=== PATIENT | female | born 1965 | race African-American/Black ===

== ENCOUNTER 2017-05-29 08:44 | Day surgery (SDC) | payer MEDICARE, OTHER, MEDICAID ==
[2017-05-29] MEDS ORDERED: Acetaminophen 500 MG TAB PO PRN (09:00)
[2017-05-29] MEDS ORDERED: diphenhydrAMINE 25 MG in Sodium Chloride 0.9% 50 ML IVPB SCH (09:00)
[2017-05-29] MEDS ORDERED: diphenhydrAMINE 50 MG/ML VIAL IVP PRN (09:00)
[2017-05-29] MEDS ORDERED: Acetaminophen 500 MG TAB PO SCH (09:00)
[2017-05-29] MEDS ORDERED: Sodium Chloride 0.9% 20 ML ONE (09:08)
[2017-05-29] MEDS ORDERED: SODIUM CHLORIDE 0.9% IVPB SCH (09:15)
[2017-05-29] MEDS ORDERED: INFLIXIMAB IVPB SCH (09:15)
[2017-05-29 16:19] VITALS: BP 122/70; TEMP 97.9
== END 2017-05-29 16:26 | disposition home or self-care (01) ==
LOC: ONC/OP 08:44
PROVIDERS: ATTEND Internal Medicine Rheumatology
DX: M05.89 Other rheumatoid arthritis with rheumatoid factor of multiple sites (principal); I10 Essential (primary) hypertension; E03.9 Hypothyroidism, unspecified; Z88.0 Allergy status to penicillin; Z90.710 Acquired absence of both cervix and uterus; Z98.890 Other specified postprocedural states
CPT/HCPCS: 96367; 96413; 96415; A4216; J1200; J1745; J7050

== ENCOUNTER 2018-05-09 01:26 | Emergency (ER) | payer OTHER, MEDICARE ==
[2018-05-09] MEDS ORDERED: Famotidine 20 MG TAB ONE (01:38)
[2018-05-09] MEDS ORDERED: predniSONE 20 MG TAB ONE (01:39)
== END 2018-05-09 01:44 | disposition home or self-care (01) ==
LOC: SCSER 01:26
DX: T78.40XA Allergy, unspecified, initial encounter (principal); I10 Essential (primary) hypertension; E03.9 Hypothyroidism, unspecified; K21.9 Gastro-esophageal reflux disease without esophagitis
CPT/HCPCS: 99283; J7506

== ENCOUNTER 2018-05-30 12:20 | Emergency (ER) | payer OTHER, MEDICARE ==
[2018-05-30] MEDS ORDERED: Clindamycin/D5W 900 mg/50 ml Premix Bag ONE (12:56)
[2018-05-30] MEDS ORDERED: Dexamethasone 10 MG/ML VIAL ONE (12:56)
[2018-05-30 13:08] LABS: #Basophils 0.1 thou/uL (0.0-0.2); #Lymphocytes 1.9 thou/uL (1.20-3.40); #Monocytes 0.6 thou/uL (0.11-0.59); #Neutrophils 3.9 thou/uL (1.40-6.50); %Basophils 1.3 % (0.0-1.0); %Eosinophils 0.1 % (0.0-10.0); %Lymphocytes 29.2 % (21.0-51.0); %Monocytes 9.3 % (0.0-10.0); %Neutrophils 60.2 % (42.0-75.0); Mean Corpuscular HGB CONC 32.4 g/dL (32.0-36.0); Mean Corpuscular Hemoglobin 28.8 pg (27.0-31.0); Mean Corpuscular Volume 88.9 fL (78.0-98.0); Mean Platelet Volume 6.4 fL (7.4-10.4); Platelet Count 217 thou/uL (130-400); RBC Distribution Width 13.8 % (11.5-14.5); Red Blood Cell (RBC) Count 4.17 mill/uL (4.20-5.40); White Blood Cell (WBC) Count 6.4 thou/uL (4.8-10.8)
[2018-05-30 13:20] LABS: Anion Gap 14 mmol/L (10-20); BUN (Urea Nitrogen) 15 mg/dL (9.8-20.1); Calc. Creatinine Clearance 0 mL/min (70-130); Calcium 9.8 mg/dL (7.8-10.44); Carbon Dioxide 29 mmol/L (22-29); Chloride 105 mmol/L (98-107); Estimated GFR-MDRD Greater than 90; Glucose 117 mg/dL (70-105); Potassium 3.6 mmol/L (3.5-5.1); Sodium 144 mmol/L (136-145)
[2018-05-30] MEDS ORDERED: Benzocaine 20% Spray 60 ML CAN ONE (13:54)
--- NOTE | 2018-05-30 18:40 | CON ---
DATE OF CONSULTATION: 05/30/2018 CHIEF COMPLAINT: I am seeing Ms. Owusu in consultation at the request of Dr. Leon Barajas for eval uation and treatment of possible peritonsillar abscess. HISTORY OF PRESENT ILLNESS: The patient is a 53-year-old woman who was in her usual state of good he alth until this morning about 10:00 a.m. when she started noticing some left-sided throat pain and a feeling of fullness, making it difficult for her to swallow. She denies any sore throat previously. She denies any difficulty with breathing at this time. She has not had any fever. Interestingly, s he had an episode of angioedema a week or two ago and has subsequently been taken off her TAMI inhibit or. She does have a history of reflux and takes a proton pump inhibitor as needed, but has not taken any recently. She denies other ear, nose, or throat complaints. PAST MEDICAL HISTORY: Significant for hypertension, rheumatoid arthritis. She denies diabetes. PAST SURGICAL HISTORY: No history of tonsillectomy. CURRENT MEDICATIONS: Reviewed on the nursing intake and no changes were noted. REVIEW OF SYSTEMS: Reviewed on the nursing intake and no changes were noted. PHYSICAL EXAMINATION: GENERAL: Ms. Owusu is in good spirits. Resting comfortably in the Emergency Department bed upright. HEENT: Head is normocephalic. The parotid and submandibular glands are smooth. There is normal fac ial tone. External ears and nose showed no scars, lesions, or masses. Ear canals are clear. Drums are within normal limits. Rhinoscopy reveals a midline septum. Mucosa is pink and moist. There is no pus or polyps. Oral cavity, lips, teeth, and gums are in good repair. Hard palate is normal. Mu cous membranes are pink and moist. She does have a slightly deviated uvula to the right and maybe a little erythema over the soft palate, but not bulging and not overly erythematous and there are certa inly no exudates. Tonsils are 1+. She does have some lateral gutter edema in the oropharynx on that left side. The airway is widely patent. I was unable to visualize the nasopharynx, hypopharynx, or larynx. NECK: There is no mass or thyromegaly. The trachea is midline. LYMPHATIC: No cervical lymphadenopathy. Voice quality is clear without any evidence of a hot potato voice. DATA: The patient had a CBC and was reportedly had a white count of 6. IMPRESSION: Oropharyngeal edema. This may be a very early peritonsillar cellulitis versus edema fro m may be a reflux attack with some choking episodes maybe at night. PLAN: The patient has, prior to my arrival, received 20 of Decadron as well as intravenous clindamyc in. I think it is very reasonable for her to be discharged home on oral antibiotic and a little Medr ol Dosepak with the instructions that she should follow up with my office next week if her symptoms d o not improve or certainly if they worsen. I have also encouraged her to take her reflux medication once or twice daily regularly for the next week or two.
== END 2018-05-30 14:26 | disposition home or self-care (01) ==
LOC: SCSER 12:20
DX: J39.2 Other diseases of pharynx (principal); I10 Essential (primary) hypertension; K21.9 Gastro-esophageal reflux disease without esophagitis; E03.9 Hypothyroidism, unspecified; M06.9 Rheumatoid arthritis, unspecified
CPT/HCPCS: 80048; 85025; 87081; 87430; 96365; 96375; J1100; J3490

== ENCOUNTER 2018-06-16 20:51 | Inpatient (IN) | payer OTHER, MEDICARE ==
[2018-06-16] MEDS ORDERED: diphenhydrAMINE 50 MG/ML VIAL ONE (21:03)
[2018-06-16] MEDS ORDERED: methylPREDNISolone Sod Succ/PF 125 MG/2 ML VIAL ONE (21:03)
[2018-06-16] MEDS ORDERED: Famotidine/PF 20 mg/2ml Vial ONE (21:03)
[2018-06-16] MEDS ORDERED: Ondansetron PF 4 MG/2 ML Vial ONE (21:11)
[2018-06-16 21:45] LABS: #Basophils 0.1 thou/uL (0.0-0.2); #Lymphocytes 3.2 thou/uL (1.20-3.40); #Monocytes 1.2 thou/uL (0.11-0.59); #Neutrophils 6.5 thou/uL (1.40-6.50); %Basophils 1.1 % (0.0-1.0); %Eosinophils 0.1 % (0.0-10.0); %Monocytes 10.6 % (0.0-10.0); %Neutrophils 59.3 % (42.0-75.0); Mean Corpuscular HGB CONC 33.3 g/dL (32.0-36.0); Mean Corpuscular Hemoglobin 29.3 pg (27.0-31.0); Mean Corpuscular Volume 87.8 fL (78.0-98.0); Mean Platelet Volume 6.5 fL (7.4-10.4); Platelet Count 234 thou/uL (130-400); RBC Distribution Width 13.6 % (11.5-14.5); White Blood Cell (WBC) Count 10.9 thou/uL (4.8-10.8)
[2018-06-16 21:56] LABS: ALT (SGPT) 32 U/L (8-55); AST (SGOT) 24 U/L (5-34); Albumin 4.1 g/dL (3.5-5.0); Alkaline Phosphatase 64 U/L (40-150); Anion Gap 15 mmol/L (10-20); BUN (Urea Nitrogen) 21 mg/dL (9.8-20.1); Bilirubin, Total 0.4 mg/dL (0.2-1.2); Calc. Creatinine Clearance 0 mL/min (70-130); Calcium 9.5 mg/dL (7.8-10.44); Carbon Dioxide 27 mmol/L (22-29); Chloride 104 mmol/L (98-107); Estimated GFR-MDRD Greater than 90; Glucose 90 mg/dL (70-105); Protein, Total 7.1 g/dL (6.0-8.3); Sodium 143 mmol/L (136-145)
[2018-06-16 22:02] LABS: Potassium 2.9 mmol/L (3.5-5.1)
[2018-06-16 22:55] VITALS: BMI 40.7
[2018-06-17] MEDS ORDERED: Acetaminophen 325 MG TAB PO PRN (00:32)
[2018-06-17] MEDS ORDERED: diphenhydrAMINE 50 MG/ML VIAL IVP PRN (00:35)
[2018-06-17] MEDS ORDERED: Potassium Chloride 20 MEQ TAB PO SCH (01:00)
--- NOTE | 2018-06-17 01:45 | HP ---
PRIMARY CARE PHYSICIAN: Dr. Mcbride. CHIEF COMPLAINT: Tongue swelling. HISTORY OF PRESENT ILLNESS: The patient is a very pleasant 53-year-old female with a past medical hi story of rheumatoid arthritis, hypertension, obesity, hypothyroidism, who presents to the hospital wi complaints of tingling to her tongue. The patient stated that she initially was on an TAMI inhibit or; however, on 05/08/2018, she started having swelling and tingling of her tongue and her mouth, so she went to the ER, she was taken off of the TAMI inhibitor. Patient on 05/10/2018 instead of the TAMI was put on an ARB and losartan. The patient states that she has been taking her losartan without an y issues. The patient stated that this morning she woke up, she took all her medications as prescrib ed. There was nothing new that she was recently prescribed. The patient stated that around 8:00 p.m . tonight, she started feeling a tingling sensation on her tongue and swelling of the left side of he r tongue. The patient at this time took Benadryl, called her who brought her into the ER. T he patient in the ER was given Pepcid, Benadryl, and was transferred here for overnight observation. The patient stated that initially she started also had some sensation to the back of her throat whic h currently is not present. She denies any shortness of breath. PAST MEDICAL HISTORY: She has a history of: 1. Hypertension. 2. Hypothyroidism. 3. Rheumatoid arthritis. 4. Obesity. PAST SURGICAL HISTORY: She has had several surgeries. 1. She has had breast reduction. 2. Hysterectomy. 3. She has had a cholecystectomy. 4. She has had a . ALLERGIES: She is allergic to AMOXICILLIN and PENICILLIN. She gets hives and she is now allergic to LISINOPRIL and LOSARTAN. MEDICATIONS: I do not have the list with me. I have asked the family to bring the medication list. SOCIAL HISTORY: She denies any alcohol use, drug use or smoking history. FAMILY HISTORY: No history of heart disease, cancer or autoimmune process. REVIEW OF SYSTEMS: All negative except for the ones mentioned above in the HPI. PHYSICAL EXAMINATION: VITAL SIGNS: As of the following, temperature 97.6, pulse 76, sats 79% on room air, blood pressure 1 44/92. GENERAL: She is awake, alert, oriented x3, does not appear in any distress. HEENT: The patient's tongue does not appear to be swollen at this point. Mucous membranes are intac t. No swelling of her lips are noted either. CARDIOVASCULAR: S1, S2 present. No murmurs, rubs or gallops. LUNGS: Clear to auscultation, rhonchi or wheezes noted. ABDOMEN: Soft, nontender. Bowel sounds are present x2. EXTREMITIES: No edema. Pedal pulses present x2. NEUROLOGICAL: Neurovascular caro, no focal deficits noted. LABORATORY RESULTS: As of the following, WBCs of 10.9, hemoglobin of 12.0, hematocrit of 36.0, plate lets of 234. Chemistry: Sodium of 143, potassium of 2.9, BUN of 21, creatinine of 0.74. LFTs were normal. ASSESSMENT AND PLAN: The patient is a very pleasant 53-year-old female who presents to the hospital with complaints of tingling to her tongue. 1. Angioedema. We will continue Pepcid twice a day. We will also put her on p.r.n. Benadryl. I do not think at this time, patient needs any steroids. We will continue to monitor. If she is feeling well, we will possibly discharge her in the morning. She not be able to take an TAMI or ARB. We will also need alternative medications for her hypertension. 2. Hypokalemia. This was replaced in the ER. We will check her BMP again. 3. Hypertension. The patient states that she does get lower extremity swelling, may try a beta bloc ker. 4. Rheumatoid arthritis. The patient is on Remicade. She takes it every 6 weeks and she is also on sulfasalazine. 5. Obesity. The patient is on obesity medication of phentermine, which she has been on it for the p ast six months. 6. Deep venous thrombosis prophylaxis. We will put the patient on sequential compression devices. Of note, in the ED, she did get Pepcid. She got Solu-Medrol. She got Benadryl and some Zofran. She did not get any potassium, so will replace the potassium here.
[2018-06-17 04:25] LABS: Anion Gap 13 mmol/L (10-20); BUN (Urea Nitrogen) 18 mg/dL (9.8-20.1); Calc. Creatinine Clearance 162 mL/min (70-130); Calcium 9.6 mg/dL (7.8-10.44); Carbon Dioxide 25 mmol/L (22-29); Chloride 107 mmol/L (98-107); Estimated GFR-MDRD Greater than 90; Glucose 143 mg/dL (70-105); Potassium 3.6 mmol/L (3.5-5.1); Sodium 141 mmol/L (136-145)
[2018-06-17 05:00] LABS: #Lymphocytes 0.9 thou/uL (1.20-3.40); #Monocytes 0.1 thou/uL (0.11-0.59); #Neutrophils 6.3 thou/uL (1.40-6.50); %Basophils 0.4 % (0.0-1.0); %Eosinophils 0.1 % (0.0-10.0); %Lymphocytes 12.7 % (21.0-51.0); %Neutrophils 85.7 % (42.0-75.0); Hemoglobin 12.3 g/dL (12.0-16.0); Mean Corpuscular HGB CONC 32.6 g/dL (32.0-36.0); Mean Corpuscular Hemoglobin 30.2 pg (27.0-31.0); Mean Corpuscular Volume 92.7 fL (78.0-98.0); Mean Platelet Volume 6.7 fL (7.4-10.4); Platelet Count 293 thou/uL (130-400); Red Blood Cell (RBC) Count 4.09 mill/uL (4.20-5.40); White Blood Cell (WBC) Count 7.4 thou/uL (4.8-10.8)
[2018-06-17] MEDS ORDERED: Famotidine 20 MG TAB PO SCH (09:00)
[2018-06-17] MEDS ORDERED: Cyclobenzaprine 10 MG TAB PO PRN (09:26)
[2018-06-17] MEDS ORDERED: Calcium Carbonate 500 MG ChewTAB PO PRN (09:26)
[2018-06-17] MEDS ORDERED: INFLIXIMAB IVPB SCH (09:30)
[2018-06-17] MEDS ORDERED: Hydrochlorothiazide 25 MG TAB PO SCH (09:45)
[2018-06-17] MEDS ORDERED: Amlodipine 5 MG TAB PO SCH (10:00)
[2018-06-17] MEDS ORDERED: diphenhydrAMINE 25 MG CAP PO PRN (14:40)
[2018-06-17 14:42] VITALS: BP 126/80; TEMP 97.9
[2018-06-17] MEDS ORDERED: Gabapentin 300 MG CAP PO SCH (15:00)
--- NOTE | 2018-06-17 15:02 | DIS ---
DATE OF ADMISSION: 06/17/2018 DATE OF DISCHARGE: 06/17/2018 PRIMARY CARE PROVIDER: Gume Mcbride M.D. DISCHARGE DIAGNOSES: 1. Angioedema. 2. Hypertension. 3. Hypokalemia. CONDITION OF PATIENT ON THE DAY OF DISCHARGE: Stable. I assessed Ms. Owusu on the day of discharge. She denies any complaints. PHYSICAL EXAMINATION: VITAL SIGNS: Stable. HEART: S1 and S2 are heard, regular. LUNGS: Clear to auscultation. HEENT: There is no tongue swelling. Throat appears normal. DISCHARGE MEDICATIONS: Amitriptyline 10 mg at bedtime, vitamin D3 5000 units daily, gabapentin 300 m g 3 times a day, infliximab as directed, leflunomide 20 mg daily, levothyroxine 125 mcg daily, lorata dine/pseudoephedrine allergy relief 1 tablet daily, naproxen 500 mg 2 times a day, phentermine 37.5 m g daily, sulfasalazine 500 mg 2 times a day, tizanidine 4 mg daily, triamcinolone 15 gram tube topica lly 2 times a day, amlodipine 2.5 mg daily, Pepcid 20 mg 2 times a day, hydrochlorothiazide 25 mg mao ly, Losartan has been discontinued, Medrol Dosepak, ibuprofen 200 mg every 6 hours as needed, Tums 50 0 mg 4 times a day as needed, Flexeril 10 mg at bedtime as needed, Meloxicam 15 mg daily as needed an d Benadryl 25 mg every 8 hours as needed. The patient has been advised not to drive or use heavy mac hinery when using Benadryl. HOSPITAL COURSE: Ms. Preston is a pleasant 53-year-old lady who was admitted to [facility] on 06/17/2018 for angioedema. She presented with tongue swelling. She was on losartan. Losartan has been discontinued. She has been started on amlodipine and hydrochlorothiazide, which w as already taking and was continued. She has been advised to take her blood pressure and heart rate 3 times a day and show that numbers to her primary care provider so that her blood pressure medicatio ns can be titrated. She has also been advised to take Pepcid 20 mg 2 times a day for 5 days, Benadryl p.r.n., and Medrol Dosepak. She has been advised to return to emergency room for new or worsening symptoms. She has been advised not to take TAMI inhibitors are ARB in the future. Many thanks for allowing me to participate in your patient's care. Please feel free to contact me wi th any questions or concerns. DISCHARGE DESTINATION: Home.
[2018-06-17] MEDS ORDERED: Amitriptyline HCl 10 MG TAB PO SCH (21:00)
[2018-06-17] MEDS ORDERED: Betamethasone 0.1% Cream 15 GM TUBE TOP SCH (21:00)
[2018-06-17] MEDS ORDERED: sulfaSALAzine 500 MG TAB PO SCH (21:00)
[2018-06-18] MEDS ORDERED: Levothyroxine Sodium 125 MCG TAB PO SCH (06:00)
[2018-06-18] MEDS ORDERED: Amlodipine 5 MG TAB PO SCH (09:00)
[2018-06-18] MEDS ORDERED: Loratadine/Pseudoephedrine 10/240 mg Tablet PO SCH (09:00)
[2018-06-18] MEDS ORDERED: Leflunomide 10 mg Tablet PO SCH (09:00)
[2018-06-18] MEDS ORDERED: Hydrochlorothiazide 25 MG TAB PO SCH (09:00)
[2018-06-18] MEDS ORDERED: PHENTERMINE HCL 37.5 MG PO SCH (09:00)
== END 2018-06-17 15:33 | disposition home or self-care (01) | DRG 916 ==
LOC: SCSER 20:51 → IMCU/EMU 21:50
PROVIDERS: ADMIT Internal Medicine; ATTEND Internal Medicine
DX: T78.3XXA Angioneurotic edema, initial encounter (principal); Z68.41 Body mass index [BMI] 40.0-44.9, adult; I10 Essential (primary) hypertension; E03.9 Hypothyroidism, unspecified; M06.9 Rheumatoid arthritis, unspecified; E66.9 Obesity, unspecified; E87.6 Hypokalemia; T46.5X5A Adverse effect of other antihypertensive drugs, initial encounter; Z88.0 Allergy status to penicillin; Z88.8 Allergy status to other drugs, medicaments and biological substances; Z79.899 Other long term (current) drug therapy
CPT/HCPCS: 36415; 80048; 80053; 85025; 86850; 86900; 86901; 96374; 96375; J1200; J2405; J2930; S0028

== ENCOUNTER 2018-07-20 04:03 | Inpatient (IN) | payer OTHER, MEDICARE ==
[2018-07-20] MEDS ORDERED: methylPREDNISolone Sod Succ/PF 125 MG/2 ML VIAL ONE (04:27)
[2018-07-20] MEDS ORDERED: Famotidine/PF 20 mg/2ml Vial ONE (04:27)
[2018-07-20] MEDS ORDERED: diphenhydrAMINE 50 MG/ML VIAL ONE (04:27)
[2018-07-20] MEDS ORDERED: Ondansetron PF 4 MG/2 ML Vial ONE (04:34)
[2018-07-20 04:41] LABS: #Basophils 0.2 thou/uL (0.0-0.2); #Lymphocytes 3.1 thou/uL (1.20-3.40); #Monocytes 1.2 thou/uL (0.11-0.59); #Neutrophils 8.3 thou/uL (1.40-6.50); %Basophils 1.3 % (0.0-1.0); %Lymphocytes 24.3 % (21.0-51.0); %Monocytes 9.2 % (0.0-10.0); %Neutrophils 65.2 % (42.0-75.0); Mean Corpuscular HGB CONC 31.4 g/dL (32.0-36.0); Mean Corpuscular Volume 92.2 fL (78.0-98.0); Mean Platelet Volume 6.7 fL (7.4-10.4); Platelet Count 294 thou/uL (130-400); RBC Distribution Width 14.2 % (11.5-14.5); Red Blood Cell (RBC) Count 4.12 mill/uL (4.20-5.40); White Blood Cell (WBC) Count 12.7 thou/uL (4.8-10.8)
[2018-07-20] MEDS ORDERED: EPINEPHrine 1 MG/ML AMP ONE (04:44)
[2018-07-20 04:49] LABS: Anion Gap 15 mmol/L (10-20); BUN (Urea Nitrogen) 29 mg/dL (9.8-20.1); Calc. Creatinine Clearance 0 mL/min (70-130); Calcium 9.5 mg/dL (7.8-10.44); Carbon Dioxide 26 mmol/L (22-29); Chloride 104 mmol/L (98-107); Estimated GFR-MDRD Greater than 90; Glucose 110 mg/dL (70-105); Potassium 3.3 mmol/L (3.5-5.1); Sodium 142 mmol/L (136-145)
[2018-07-20 05:59] VITALS: BMI 42.0
[2018-07-20] MEDS ORDERED: cloNIDine 0.1 MG TAB PO PRN (07:11)
[2018-07-20] MEDS ORDERED: Benzonatate 100 MG CAP PO PRN (07:11)
[2018-07-20] MEDS ORDERED: Nitroglycerin 0.4 MG TAB (25 Tab Bottle) SL PRN (07:11)
[2018-07-20] MEDS ORDERED: hydrALAZINE 20 MG/ML VIAL SLOW IVP PRN (07:11)
[2018-07-20] MEDS ORDERED: diphenhydrAMINE 25 MG CAP PO PRN (07:11)
[2018-07-20] MEDS ORDERED: Acetaminophen 325 MG TAB PO PRN (07:11)
[2018-07-20] MEDS ORDERED: Senokot S 8.6-50 MG TAB PO PRN (07:11)
[2018-07-20] MEDS ORDERED: Bisacodyl 5 MG TAB PO PRN (07:11)
[2018-07-20] MEDS ORDERED: Calcium Carbonate 500 MG ChewTAB PO PRN (07:11)
[2018-07-20] MEDS ORDERED: Ondansetron PF 4 MG/2 ML Vial IVP PRN ×2 (07:11)
[2018-07-20] MEDS ORDERED: diphenhydrAMINE 50 MG/ML VIAL IVP SCH (07:15)
[2018-07-20] MEDS ORDERED: Potassium Chloride 40 MEQ in Premix Bag 1 BAG IVPB SCH (08:00)
[2018-07-20] MEDS ORDERED: Enoxaparin Sodium 40 MG/0.4 ML SYRINGE SC SCH (09:00)
[2018-07-20] MEDS ORDERED: Famotidine/PF 20 mg/2ml Vial SLOW IVP SCH (09:00)
[2018-07-20] MEDS: diphenhydrAMINE 50 MG/ML VIAL IVP SCH ×2 (12:59→13:17)
--- NOTE | 2018-07-20 13:18 | HP ---
PRIMARY CARE PHYSICIAN: . CHIEF COMPLAINT: Scratchy throat. HISTORY OF PRESENT ILLNESS: Ms. Owusu is a 53-year-old female with a past medical history of rheumatoid arthritis, on immunosuppressants as well as history of hypertension, hypothyroidism, and TAMI inhibitor induced angioedema last month: Who presented to the emergency room with above-mentioned complaint. History is mainly obtained by the patient herself, and electronic medical records have been reviewed. She was last admitted to our facility on 06/17/2018 with tongue swelling and was diagnosed with angioedema due to TAMI inhibitor or ARB. She was told to stop that and she has not been back on it at all. She presented to the ER yesterday when she felt that the left side of her throat was scratchy and felt that her left tonsil is swollen. The patient very specifically declines any shortness of breath, wheezing, tongue swelling, or throat swelling. Nevertheless, the Emergency Room diagnosed her as having angioedema and ordered FFP and she was admitted to IMCU. By the time I am examining the patient, she has no symptoms suggestive of angioedema or even an allergic reaction. The patient vehemently declines using any TAMI inhibitors or ARB use. She is not having any fever, chills, shortness of breath, wheezing, or cough at this time. She is being admitted to the hospital with a presumptive diagnosis of angioedema as per the emergency room physician and for observation as per my diagnosis of possible viral pharyngitis. Unfortunately, she has already been started on fresh frozen plasma prior to me seeing her as ordered by ER physician. PAST MEDICAL HISTORY: 1. Hypertension. 2. Rheumatoid arthritis. 3. Hypothyroidism. 4. Obesity. PAST SURGICAL HISTORY: 1. Breast reduction. 2. Hysterectomy. 3. Cholecystectomy. 4. . ALLERGIES: AMOXICILLIN, PENICILLIN, LISINOPRIL, AND LOSARTAN. MEDICATION: List not updated as yet. She does take Imuran and Remicade as per the last admission as well as levothyroxine. SOCIAL HISTORY: No history of drug, tobacco, or alcohol abuse. FAMILY HISTORY: No significant family history of heart disease, cancer, or autoimmune process. REVIEW OF SYSTEMS: A 12-point review of systems is negative except for those mentioned in the history and physical. LABORATORY DATA: Her CBC shows WBCs at 12.7 without any left shift. Serum chemistry showed potassium of 3.3 and TSH of 0.0028. Complement C4 level was sent and is normal at 32. PHYSICAL EXAMINATION: VITAL SIGNS: Most recent vital signs; temperature 97.5, respirations 18, saturating 97% on room air, blood pressure 129/83, heart rate 87. GENERAL: No acute distress. Awake, alert, and oriented x3. She is somewhat somnolent from receiving multiple doses of IV Benadryl. Otherwise, easily woken up. HEENT: There is some erythema to the left tonsillar foci without any exudate or abscesses on the tonsil. There is absolutely no swelling in the posterior pharynx, tongue, roof of the mouth. Head is normocephalic, atraumatic. Mucous membranes are moist and pink. Pupils are equal, reactive to light and accommodation. NECK: Supple without any lymphadenopathy, JVD, or bruit. No stridor is heard. CHEST: Clear to auscultation without any wheezing, rales, or rhonchi. CARDIAC: Rate and rhythm are regular without any murmurs, rubs, or gallops. ABDOMEN: Soft, nontender, nondistended. Positive bowel sounds. EXTREMITIES: Free of any cyanosis, clubbing, or edema. NEUROLOGICAL: Nonfocal. SKIN: Free of any rashes or bruises. Feels warm and dry to touch. IMPRESSION AND PLAN: 1. Rule out angioedema. As per my history taking and my physical examination, I do not believe that this is angioedema. Also, there is no need for fresh frozen plasma as the complement C4 levels are normal. Her last episode was due to TAMI inhibitors or ARBs, which she has not been taking again. I do not think that she has C1 esterase inhibitor deficiency with normal complement C4 levels. However, she will finish the steroid, Benadryl, and Pepcid in the hospital, and most likely, we will try to discharge her home later today if she remains hemodynamically stable. There is absolutely no need for her to stay in the critical care unit and she will be moved to medical bed. She is currently hemodynamically stable, and there is no evidence of any respiratory distress. Comorbidities; resume home medications once confirmed. 2. , iatrogenic. Once her home dosage is confirmed, we will reduce the dose of the levothyroxine as her TSH is negligible. 3. History of hypertension. Restart home medications once confirmed. 4. Deep venous thrombosis and gastrointestinal prophylaxis. DISPOSITION: Ms. Owusu is being admitted to rule out angioedema. Estimated length of stay at this time is less than 2 midnights. Further management will depend upon her clinical course. Job ID: [id number]
[2018-07-20] MEDS ORDERED: Potassium Chloride 20 MEQ TAB PO SCH (15:15)
[2018-07-20 17:29] VITALS: BP 155/74; TEMP 97.9
--- NOTE | 2018-07-21 12:59 | DIS ---
DATE OF ADMISSION: 07/20/2018 DATE OF DISCHARGE: 07/20/2018 DISCHARGE DISPOSITION: Home. DISCHARGE DIAGNOSES: 1. Sore throat, rule out angioedema. 2. Hypertension. 3. Rheumatoid arthritis. 4. Hypothyroidism. 5. for 5 more days and Benadryl p.r.n. DISCHARGE SUMMARY: Ms. Owusu was admitted earlier today to rule out angioedema when developed some scratchy throat. She was recently admitted to our facility last month with angioedema and got worried when she had some throat itchiness and tonsil was swollen. She was admitted with presumptive diagnosis of angioedema. Please see admission H and P for further details. HOSPITAL COURSE: The patient had absolutely no symptoms of angioedema while in the hospital. She was not in any allergic reaction either. She was briefly treated with IV steroids and when it became apparent that she was discharged. Once again, please check H and P for further details. She will follow up with primary care physician in 1 to 2 days or return to the ER if her symptoms reoccur including throat or tongue swelling, wheezing, stridor, dizziness, lightheadedness, or rash. Job ID: [id number]
== END 2018-07-20 17:25 | disposition home or self-care (01) | DRG 153 ==
LOC: SCSER 04:03 → INTOOBSV 05:06 → CCU 05:06 → T4-A 09:34 → OBSVTOIN 17:24
PROVIDERS: ADMIT Internal Medicine; ATTEND Internal Medicine
PROC: 30233K1 Transfusion of Nonautologous Frozen Plasma into Peripheral Vein, Percutaneous Approach (ICD-10-PCS; principal; 2018-07-20)
DX: J02.9 Acute pharyngitis, unspecified (principal); Z68.41 Body mass index [BMI] 40.0-44.9, adult; T78.3XXA Angioneurotic edema, initial encounter; M06.9 Rheumatoid arthritis, unspecified; I10 Essential (primary) hypertension; E03.9 Hypothyroidism, unspecified; E66.9 Obesity, unspecified
CPT/HCPCS: 36415; 36430; 80048; 84443; 85025; 86160; 86850; 86900; 86901; 96372; 96374; 96375; J0171; J1200; J1650; J2405; J2920; J2930; J3480; P9059; S0028

== ENCOUNTER 2018-08-06 10:15 | Emergency (ER) | payer OTHER, MEDICARE ==
[2018-08-06] MEDS ORDERED: methylPREDNISolone Sod Succ/PF 125 MG/2 ML VIAL ONE (11:01)
[2018-08-06] MEDS ORDERED: diphenhydrAMINE 50 MG/ML VIAL ONE (11:01)
[2018-08-06] MEDS ORDERED: Ondansetron PF 4 MG/2 ML Vial ONE (11:06)
== END 2018-08-06 13:17 | disposition home or self-care (01) ==
LOC: SCSER 10:15
DX: T78.3XXA Angioneurotic edema, initial encounter (principal); E03.9 Hypothyroidism, unspecified; M06.9 Rheumatoid arthritis, unspecified; K21.9 Gastro-esophageal reflux disease without esophagitis; Z79.899 Other long term (current) drug therapy
CPT/HCPCS: 96374; 96375; J1200; J2405; J2930

== ENCOUNTER 2018-08-24 14:42 | Emergency (ER) | payer OTHER, MEDICARE ==
[2018-08-24] MEDS ORDERED: Famotidine/PF 20 mg/2ml Vial ONE (15:19)
[2018-08-24] MEDS ORDERED: diphenhydrAMINE 50 MG/ML VIAL ONE (15:19)
== END 2018-08-24 18:37 | disposition home or self-care (01) ==
LOC: SCSER 14:42
DX: T78.3XXA Angioneurotic edema, initial encounter (principal); I10 Essential (primary) hypertension; E03.9 Hypothyroidism, unspecified; K21.9 Gastro-esophageal reflux disease without esophagitis
CPT/HCPCS: 96374; 96375; J1200; S0028

== ENCOUNTER 2018-10-03 01:07 | Emergency (ER) | payer OTHER, MEDICARE ==
[2018-10-03] MEDS ORDERED: Water For Inject, Bacteriostat 30 ML ONE (01:42)
[2018-10-03] MEDS ORDERED: diphenhydrAMINE 50 MG/ML VIAL ONE (01:42)
[2018-10-03] MEDS ORDERED: methylPREDNISolone Sod Succ/PF 125 MG/2 ML VIAL ONE (01:42)
[2018-10-03] MEDS ORDERED: Mag-Al Plus 1200 MG/1200 MG/120 MG/30 ML UDCUP ONE (07:07)
[2018-10-03] MEDS ORDERED: Lidocaine Viscous Sol 2% 15 ml UD Cup ONE (07:07)
== END 2018-10-03 07:37 | disposition home or self-care (01) ==
LOC: SCSER 01:07
DX: R07.0 Pain in throat (principal); I10 Essential (primary) hypertension; E03.9 Hypothyroidism, unspecified; K21.9 Gastro-esophageal reflux disease without esophagitis; Z79.899 Other long term (current) drug therapy
CPT/HCPCS: 96374; J1200; J2930

== ENCOUNTER 2018-12-08 09:03 | Day surgery (SDC) | payer MEDICARE, MEDICAID ==
[~2018-12-08 09:03] MED LIST: Acetaminophen 500 MG TAB PO PRN; INFLIXIMAB DYYB IVPB SCH; SODIUM CHLORIDE 0.9% IVPB SCH; diphenhydrAMINE 25 MG CAP PO PRN; diphenhydrAMINE 50 MG/ML VIAL IVP PRN
[2018-12-08 09:57] VITALS: BP 142/67; TEMP 97.8
== END 2018-12-08 16:54 | disposition home or self-care (01) ==
LOC: ONC/OP 09:03
PROVIDERS: ATTEND Internal Medicine Rheumatology
DX: M05.89 Other rheumatoid arthritis with rheumatoid factor of multiple sites (principal); Z88.0 Allergy status to penicillin; Z88.8 Allergy status to other drugs, medicaments and biological substances
CPT/HCPCS: 96375; 96413; 96415; J7050; Q0163; Q5103

== ENCOUNTER 2019-01-19 08:40 | Day surgery (SDC) | payer MEDICARE, MEDICAID ==
[2019-01-19 09:59] VITALS: BP 135/64; TEMP 98
[2019-01-19] MEDS ORDERED: Sodium Chloride 0.9% 20 ML ONE (11:07)
== END 2019-01-19 13:16 | disposition home or self-care (01) ==
LOC: ONC/OP 08:40
PROVIDERS: ATTEND Internal Medicine Rheumatology
DX: M05.89 Other rheumatoid arthritis with rheumatoid factor of multiple sites (principal); Z88.0 Allergy status to penicillin; Z88.8 Allergy status to other drugs, medicaments and biological substances; Z79.899 Other long term (current) drug therapy
CPT/HCPCS: 96375; 96413; 96415; J1200; J7050; Q5103

== ENCOUNTER 2019-03-02 08:34 | Day surgery (SDC) | payer MEDICARE, MEDICAID ==
[2019-03-02] MEDS ORDERED: Sodium Chloride 0.9% 20 ML ONE (08:51)
[2019-03-02 09:12] VITALS: BP 128/69; TEMP 97.7
== END 2019-03-02 16:10 | disposition home or self-care (01) ==
LOC: ONC/OP 08:34
PROVIDERS: ATTEND Internal Medicine Rheumatology
DX: M05.89 Other rheumatoid arthritis with rheumatoid factor of multiple sites (principal); Z88.0 Allergy status to penicillin; Z88.8 Allergy status to other drugs, medicaments and biological substances
CPT/HCPCS: 96413; 96415; J7050; Q0163; Q5103

== ENCOUNTER 2019-04-13 08:36 | Day surgery (SDC) | payer MEDICARE ==
[2019-04-13] MEDS ORDERED: Sodium Chloride 0.9% 20 ML ONE (08:39)
[2019-04-13 09:22] VITALS: BP 163/91; TEMP 98.1
== END 2019-04-13 13:21 | disposition home or self-care (01) ==
LOC: ONC/OP 08:36
PROVIDERS: ATTEND Internal Medicine Rheumatology
DX: M05.89 Other rheumatoid arthritis with rheumatoid factor of multiple sites (principal); Z88.0 Allergy status to penicillin; Z88.8 Allergy status to other drugs, medicaments and biological substances
CPT/HCPCS: 96375; 96413; J1200; J7050; Q5103

== ENCOUNTER 2019-05-25 08:36 | Day surgery (SDC) | payer MEDICARE ==
[2019-05-25 08:57] VITALS: BP 163/80; TEMP 98
[2019-05-25] MEDS ORDERED: Sodium Chloride 0.9% 20 ML ONE (08:58)
== END 2019-05-25 14:06 | disposition home or self-care (01) ==
LOC: ONC/OP 08:36
PROVIDERS: ATTEND Internal Medicine Rheumatology
DX: M05.89 Other rheumatoid arthritis with rheumatoid factor of multiple sites (principal); Z88.0 Allergy status to penicillin; Z88.8 Allergy status to other drugs, medicaments and biological substances
CPT/HCPCS: 96375; 96413; 96415; J1200; J7050; Q5103

== ENCOUNTER 2019-07-06 08:22 | Day surgery (SDC) | payer MEDICARE, MEDICAID ==
[2019-07-06] MEDS ORDERED: Sodium Chloride 0.9% 20 ML ONE (08:39)
[2019-07-06 08:52] VITALS: BP 163/79; TEMP 98
== END 2019-07-06 11:44 | disposition home or self-care (01) ==
LOC: ONC/OP 08:22
PROVIDERS: ATTEND Internal Medicine Rheumatology
DX: M05.89 Other rheumatoid arthritis with rheumatoid factor of multiple sites (principal); Z88.0 Allergy status to penicillin; Z88.8 Allergy status to other drugs, medicaments and biological substances
CPT/HCPCS: 96375; 96413; 96415; J1200; J7050; Q5103

== ENCOUNTER 2019-08-17 08:36 | Day surgery (SDC) | payer MEDICARE, MEDICAID ==
[2019-08-17] MEDS ORDERED: Sodium Chloride 0.9% 20 ML ONE (08:59)
[2019-08-17 09:36] VITALS: BP 152/72; TEMP 98
== END 2019-08-17 12:06 | disposition home or self-care (01) ==
LOC: ONC/OP 08:36
PROVIDERS: ATTEND Internal Medicine Rheumatology
DX: M06.9 Rheumatoid arthritis, unspecified (principal); Z88.0 Allergy status to penicillin; Z88.8 Allergy status to other drugs, medicaments and biological substances
CPT/HCPCS: 96375; 96413; 96415; J1200; J7050; Q5103

== ENCOUNTER 2019-09-28 08:22 | Day surgery (SDC) | payer MEDICARE, MEDICAID ==
[2019-09-28] MEDS ORDERED: Sodium Chloride 0.9% 20 ML ONE (08:31)
[2019-09-28 08:59] VITALS: BP 136/73; TEMP 98.3
== END 2019-09-28 12:01 | disposition home or self-care (01) ==
LOC: ONC/OP 08:22
PROVIDERS: ATTEND Internal Medicine Rheumatology
DX: M06.9 Rheumatoid arthritis, unspecified (principal); Z88.0 Allergy status to penicillin; Z88.8 Allergy status to other drugs, medicaments and biological substances
CPT/HCPCS: 96375; 96413; 96415; J1200; J7050; Q0163; Q5103

== ENCOUNTER 2019-11-09 08:29 | Day surgery (SDC) | payer MEDICARE, MEDICAID ==
[~2019-11-09 08:29] MED LIST changes: +INFLIXIMAB-DYYB 800 MG in Sodium Chloride 0.9% 250 ML 250 ML IVPB SCH; -diphenhydrAMINE 25 MG CAP PO PRN
[2019-11-09] MEDS ORDERED: Sodium Chloride 0.9% 20 ML ONE (08:48)
[2019-11-09 10:04] VITALS: BP 154/83; TEMP 98
== END 2019-11-09 11:50 | disposition home or self-care (01) ==
LOC: ONC/OP 08:29
PROVIDERS: ATTEND Internal Medicine Rheumatology
DX: M05.89 Other rheumatoid arthritis with rheumatoid factor of multiple sites (principal); Z88.0 Allergy status to penicillin; Z88.8 Allergy status to other drugs, medicaments and biological substances
CPT/HCPCS: 96375; 96413; 96415; J1200; J7050; Q5103

== ENCOUNTER 2019-11-14 13:17 | Outpatient (CLI) | payer MEDICARE, MEDICAID ==
--- NOTE | 2019-11-14 13:57 | RAD ---
LUMBAR SPINE 2 VIEWS: Date: 11/14/2019 HISTORY: Hip pain radiating down the left leg. FINDINGS: Five lumbar-type vertebral bodies are present with intact pedicles on frontal imaging. There is a lef t-sided L5 and S1 pedicle screw with a vertically oriented interlocking chirag. There is degenerative en d plate change with disc space narrowing and osteophyte formation at L5-S1. No acute fracture or disl ocation. No anterolisthesis or retrolisthesis. IMPRESSION: Postoperative and degenerative change of the lumbar spine as described above. POS: JAHAIRADI
== END 2019-11-14 13:18 | disposition home or self-care (01) ==
LOC: SCSRAD 13:17
PROVIDERS: ATTEND Neurological Surgery
DX: M54.16 Radiculopathy, lumbar region (principal); M47.817 Spondylosis without myelopathy or radiculopathy, lumbosacral region; Z98.890 Other specified postprocedural states
CPT/HCPCS: 72100

== ENCOUNTER 2020-04-25 08:20 | Day surgery (SDC) | payer MEDICARE, MEDICAID ==
[~2020-04-25 08:20] MED LIST changes: -INFLIXIMAB DYYB IVPB SCH; +INFLIXIMAB-DYYB 800 MG in Sodium Chloride 0.9% 250 ML 170 ML IVPB SCH; -INFLIXIMAB-DYYB 800 MG in Sodium Chloride 0.9% 250 ML 250 ML IVPB SCH; -SODIUM CHLORIDE 0.9% IVPB SCH
[2020-04-25] MEDS ORDERED: Sodium Chloride 0.9% 20 ML ONE (08:46)
[2020-04-25 09:11] VITALS: BP 185/91; TEMP 98.4
== END 2020-04-25 12:02 | disposition home or self-care (01) ==
LOC: ONC/OP 08:20
PROVIDERS: ATTEND Internal Medicine Rheumatology
DX: M05.89 Other rheumatoid arthritis with rheumatoid factor of multiple sites (principal); Z88.0 Allergy status to penicillin; Z88.8 Allergy status to other drugs, medicaments and biological substances
CPT/HCPCS: 96375; 96413; 96415; J1200; J7050; Q5103

== ENCOUNTER 2020-06-06 08:13 | Day surgery (SDC) | payer MEDICARE, MEDICAID ==
[2020-06-06] MEDS ORDERED: Sodium Chloride 0.9% 20 ML ONE (08:55)
[2020-06-06 10:09] VITALS: BP 145/80; TEMP 97.9
== END 2020-06-06 11:48 | disposition home or self-care (01) ==
LOC: ONC/OP 08:13
PROVIDERS: ATTEND Internal Medicine Rheumatology
DX: M05.89 Other rheumatoid arthritis with rheumatoid factor of multiple sites (principal); Z88.0 Allergy status to penicillin; Z88.8 Allergy status to other drugs, medicaments and biological substances
CPT/HCPCS: 96375; 96413; 96415; J1200; J7050; Q5103

== ENCOUNTER 2021-01-23 08:20 | Outpatient (CLI) | payer MEDICARE, OTHER | END 2021-01-23 08:21 | disposition home or self-care (01) | LOC: BICRAD 08:20 | PROVIDERS: ATTEND Internal Medicine Pulmonary Disease | DX: R06.00 Dyspnea, unspecified (principal); R91.8 Other nonspecific abnormal finding of lung field | CPT/HCPCS: 71046 ==

== ENCOUNTER 2021-01-31 14:19 | Outpatient (CLI) | payer MEDICARE ==
[2021-01-31 16:12] LABS: Bilirubin Neg (Negative); Blood, Urine Negative (Negative); Clarity Clear (Clear); Glucose, Urine (Dipstick) Normal (Negative); Ketone, Urine Negative (Negative); Leukocyte Negative (Negative); Nitrite Negative (Negative); Protein, Urine (Dipstick) Negative (Neg-Trace); Specific Gravity, Urine 1.015 (1.002-1.036); Urobilinogen Normal mg/dL (Less than 2)
[2021-01-31 16:24] LABS: Hemoglobin 13.1 g/dL (12.0-15.5); Mean Corpuscular HGB CONC 31.6 g/dL (32.0-36.0); Mean Corpuscular Hemoglobin 27.4 pg (27.0-33.0); Mean Corpuscular Volume 86.6 fl (81.6-98.3); Mean Platelet Volume 9.7 fl (7.4-10.4); Platelet Count 438 10x3/uL (150-450); RBC Distribution Width 16.4 % (11.5-14.5); Red Blood Cell (RBC) Count 4.78 10x6/uL (3.90-5.03); White Blood Cell (WBC) Count 22.1 10x3/uL (3.5-10.5)
[2021-01-31 16:37] LABS: Bacteria/HPF Rare-Few HPF (None Seen); RBC/HPF 0-3 HPF (0-3); Squamous Epithelial 0-3 HPF (0-3); WBC/HPF 0-3 HPF (0-3)
[2021-01-31 18:00] LABS: Lymphocytes 29 % (21-51); Monocytes 10 % (0-10); Neutrophil 60 % (42-75)
[2021-01-31 18:01] LABS: Anisocytosis SLIGHT = 6-15 cells (100X) (0-5/hpf); MDiff Complete? YES; Platelet Morphology Comment Appears Adequate; Stomatocytes MODERATE= 6-15 cells (100X) (0-1/hpf)
== END 2021-01-31 14:20 | disposition home or self-care (01) ==
LOC: LABBT 14:19
PROVIDERS: ATTEND Orthopaedic Surgery Hand Surgery
DX: Z01.812 Encounter for preprocedural laboratory examination (principal); G56.02 Carpal tunnel syndrome, left upper limb
CPT/HCPCS: 81001; 85025

== ENCOUNTER 2021-05-07 09:38 | Outpatient (CLI) | payer MEDICARE, OTHER ==
[2021-05-07 10:33] LABS: Bilirubin Neg (Negative); Blood, Urine Negative (Negative); Clarity Clear (Clear); Glucose, Urine (Dipstick) Normal (Negative); Ketone, Urine Negative (Negative); Leukocyte Negative (Negative); Nitrite Negative (Negative); Protein, Urine (Dipstick) 15 mg/dl (Neg-Trace); Urobilinogen Normal mg/dL (Less than 2)
[2021-05-07 10:44] LABS: Bacteria/HPF 1+ HPF (None Seen); RBC/HPF 0-3 HPF (0-3); WBC/HPF 0-3 HPF (0-3)
[2021-05-07 10:54] LABS: #Basophils 0.1 10x3/uL (0.0-0.2); #Monocytes 0.8 10x3/uL (0.0-1.1); #Neutrophils 6.8 10x3/uL (1.5-8.4); %Basophils 0.7 % (0.0-2.0); %Eosinophils 0.1 % (0.0-6.0); %Lymphocytes 27.5 % (18.0-47.0); %Monocytes 7.5 % (0.0-10.0); %Neutrophils 63.5 % (40.0-75.0); Hemoglobin 13.6 g/dL (12.0-15.5); Mean Corpuscular HGB CONC 31.8 g/dL (32.0-36.0); Mean Corpuscular Hemoglobin 27.6 pg (27.0-33.0); Mean Platelet Volume 9.3 fl (7.4-10.4); Platelet Count 368 10x3/uL (150-450); RBC Distribution Width 16.5 % (11.5-14.5); Red Blood Cell (RBC) Count 4.92 10x6/uL (3.90-5.03); White Blood Cell (WBC) Count 10.7 10x3/uL (3.5-10.5)
[2021-05-07 20:37] LABS: SARS-CoV-2 PCR by NAA Not Detected (NotDetected)
== END 2021-05-07 09:39 | disposition home or self-care (01) ==
LOC: LABBT 09:38
PROVIDERS: ATTEND Orthopaedic Surgery Hand Surgery
DX: Z01.812 Encounter for preprocedural laboratory examination (principal); G56.02 Carpal tunnel syndrome, left upper limb; Z20.822 Contact with and (suspected) exposure to COVID-19
CPT/HCPCS: 81001; 85025; U0003; U0005

== ENCOUNTER 2021-05-10 09:39 | Day surgery (SDC) | payer MEDICARE, MEDICAID ==
[2021-05-09 08:41] VITALS: BMI 39.9
[2021-05-10] MEDS ORDERED: Levofloxacin 500 mg/D5W 100 ml Premix Bag ONE (10:19)
[2021-05-10] MEDS ORDERED: Clindamycin/D5W 900 mg/50 ml Premix Bag ONE (10:19)
[2021-05-10] MEDS ORDERED: Bacitracin Zinc Ointment 30 gm TUBE ONE (10:27)
[2021-05-10] MEDS ORDERED: Betamet Acet/Betamet Na Ph 30 MG/5 ML VIAL ONE (10:27)
[2021-05-10] MEDS ORDERED: Bupivacaine PF 0.5% 30 ML VIAL ONE (10:27)
[2021-05-10] MEDS ORDERED: Midazolam HCl 2 mg/2 ml Vial ONE (10:42)
[2021-05-10] MEDS ORDERED: Ketamine 50 MG/ML (10ML VIAL) ONE (10:42)
[2021-05-10] MEDS ORDERED: Propofol 500 MG/50 ML VIAL ONE (10:42)
[2021-05-10] MEDS ORDERED: Fentanyl 100 MCG/2 ML VIAL ONE (10:42)
[2021-05-10] MEDS ORDERED: PHENYLEPHRINE-NS 100 MCG/ML 10 ML SYRINGE ONE (10:47)
[2021-05-10] MEDS ORDERED: Ondansetron PF 4 MG/2 ML Vial ONE (11:51)
[2021-05-10] MEDS ORDERED: Ketorolac Tromethamine 30 MG/ML VIAL ONE ×2 (12:23)
== END 2021-05-10 13:10 | disposition home or self-care (01) ==
LOC: SDC 09:39
PROVIDERS: ATTEND Orthopaedic Surgery Hand Surgery
PROC: 01N50ZZ Release Median Nerve, Open Approach (ICD-10-PCS; principal; 2021-05-10)
DX: G56.02 Carpal tunnel syndrome, left upper limb (principal); E03.9 Hypothyroidism, unspecified; I10 Essential (primary) hypertension; Z86.16 Personal history of COVID-19; Z79.899 Other long term (current) drug therapy; Z88.0 Allergy status to penicillin; Z88.8 Allergy status to other drugs, medicaments and biological substances; Z98.890 Other specified postprocedural states
CPT/HCPCS: J0702; J1885; J1956; J2250; J2405; J2704; J3010; J3490; S0020

== ENCOUNTER 2021-08-21 08:32 | Outpatient (CLI) | payer MEDICARE, MEDICAID | END 2021-08-21 08:33 | disposition home or self-care (01) | LOC: RAD 08:32 | PROVIDERS: ATTEND Internal Medicine Critical Care Medicine | DX: R06.00 Dyspnea, unspecified (principal) | CPT/HCPCS: 71046 ==

== ENCOUNTER 2022-08-21 09:24 | Outpatient (CLI) | payer MEDICARE | END 2022-08-21 09:25 | disposition home or self-care (01) | LOC: RAD 09:24 | PROVIDERS: ATTEND Internal Medicine Critical Care Medicine | DX: R06.00 Dyspnea, unspecified (principal) | CPT/HCPCS: 71046 ==